=== PATIENT | male | born 1940 | race Caucasian/White ===

== ENCOUNTER → 2016-10-11 | Day surgery (SDC) | payer MEDICARE ==
[~2016-10-11] MED LIST: ARICEPT PO; ASPIRIN PO; ASPIRIN81 M2 PO; DONEPEZIL HCL10 MG PO; KCL PO; MEMANTINE HCL10 MG; MOBIC PO; NAMENDA XR28 MG PO; OMEPRAZOLE20 M1 PO; OMEPRAZOLE20 M2 PO; PENTOXIFYLINE100 GM PO; TAMIFLU75 M1 PO; TRENTAL400 MG PO; VICODIN 5/500 T1 TAB PO
--- NOTE | ~2016-10-11 | EKG ---
PATIENT: KOLE KHALIL UNIT #: [id number] Ventricular Rate: 65 BPM Atrial Rate: 65 BPM P-R Interval: 166 ms QRS Duration: 100 ms Q-T Interval: 432 ms QTC Calculation(Bezet): 449 ms P Oriental: -17 degrees Calculated R Oriental: 39 degrees Calculated T Oriental: 71 degrees Diagnosis Line: Sinus rhythm with Premature atrial complexes Diagnosis Line: Minimal voltage criteria for LVH, may be normal Diagnosis Line: variant Diagnosis Line: Possible Inferior infarct , age undetermined Diagnosis Line: Abnormal ECG Diagnosis Line: No previous ECGs available Diagnosis Line: Confirmed by LASHONDA DREW MD ([id number]) on Diagnosis Line: 10/11/2016 5:28:09 PM INTERPRETING MD: RAJENDRA STEVEN
--- NOTE | ~2016-10-11 | OR ---
Unit #: [id number] #: [id number] Patient: KOLE KHALIL SR [id number] [address] [address] [id number] MR#: [id number] NAME: KOLE KHALIL SR ROOM: Date of Procedure: 10/11/2016 Admission Date: 10/11/2016 Surgeon: Aristeo Morrison M.D. : 1940 Attending Physician: Aristeo Morrison M.D. Primary Care Physician: Jim Mueller M.D. OPERATIVE REPORT PREOPERATIVE DIAGNOSIS Severe phimosis. POSTOPERATIVE DIAGNOSIS Severe phimosis. PROCEDURE PERFORMED Circumcision. ANESTHESIA General. DESCRIPTION OF PROCEDURE After informed consent, he was taken to the operating room, placed under general anesthesia, positioned supine. His penis and perineum were prepped and draped in the usual sterile fashion. A dorsal slit had to be performed initially because he had such severe phimosis could not retract the foreskin at all. The opening into the foreskin was pinhole at best. After performing a dorsal slit, the glans and foreskin were further prepped and draped. Penile block with 0.5% Marcaine was obtained initially. Parallel incisions were made in the excess and tight foreskin was excised in a systematic fashion. The skin edges were approximated using chromic in an interrupted fashion, 3-0 Vicryl to be exact. Hemostasis was achieved using electrocautery. Care was taken not to involve the deeper tissues, just the skin was excised. Sterile dressing and gauze were placed at the end of the procedure. Bactroban was used for the topical because he is allergic to Neosporin. All counts were correct at the end of the procedure. He tolerated the procedure well. I will have him return to see me as an outpatient. Dictated by... Hammad MedeirosB/modl TD: 10/13/2016 19:17 JOB #: [id number] Unit #: [id number] #: [id number] Patient: KOLE KHALIL SR OPERATIVE REPORT Page 1 of 1 X Aristeo Morrison MD PROCEDURE OPERATIVE NOTE
== END | disposition home or self-care (01) ==
LOC: CSUR 11:54
DX: N48.0 Leukoplakia of penis (principal); N47.1 Phimosis; K21.9 Gastro-esophageal reflux disease without esophagitis; G47.30 Sleep apnea, unspecified; F17.210 Nicotine dependence, cigarettes, uncomplicated; Z87.440 Personal history of urinary (tract) infections; Z86.14 Personal history of Methicillin resistant Staphylococcus aureus infection; Z88.1 Allergy status to other antibiotic agents; Z88.6 Allergy status to analgesic agent; Z88.8 Allergy status to other drugs, medicaments and biological substances; Z79.82 Long term (current) use of aspirin; Z79.899 Other long term (current) drug therapy; Z98.890 Other specified postprocedural states
CPT/HCPCS: 88304; 93005; J0690; J3010